=== PATIENT | female | born 1950 | race Caucasian/White ===

== ENCOUNTER 2019-06-17 23:53 | Emergency (ER) | payer MEDICARE, SELFPAY ==
--- NOTE | 2019-06-17 23:57 | ED_ITS ---
Entered by Kailey Holloway, acting as scribe for Jessica Denton MD Jun 17, 2019 23:53 HPI - Fall General: Chief Complaint: Fall Stated Complaint: FALL Time Seen by Provider: 06/17/19 23:56 Source: EMS Mode of arrival: EMS Limitations: no limitations History of Present Illness: HPI Narrative: 89 yo f came to the er by ems for fall and head lac. Onset was today. Ems states that pt was just released from [facility] today for an overdose of insulin. complaint: fall Onset (ago): day(s) (today) Fall from: standing Fall witnessed: no Place fall occurred: home Loss of consciousness: Unsure Prolonged down time: no Symptoms prior to fall: none Context: tripped/slipped Location of injury: head Severity: mild Associated symptoms-after fall: Reports other (back pain); Denies abdominal pain, chest pain or headache(s) Review of Systems Const: Denies: fever or chills Eyes: Denies: change in vision ENMT: Denies: throat pain or mouth pain Card: Denies: chest pain Resp: Denies: shortness of breath GI: Denies: abdominal pain : Denies: difficulty urinating Musc: Denies: back pain or joint pain Skin/Breast: Denies: rash Neuro: Denies: headache Psych: Denies: depression Endo: Denies: excessive urination [place]/Lymph: Denies: easy bruising All/Imm: Denies: hives PFSH ED PFSH: Statuses (acute, chronic, etc) shown below reflect problem list status as previously entered and may not be historically accurate Social History Smoking and tobacco status: never smoked Physical Exam Const: COMMON NORMALS: no apparent distress and healthy appearing HENMT: COMMON NORMALS: external nose normal NOSE: external nose normal and no nasal discharge (nasal dischage) OTHER: abrasion to right forehead, no laceration Eye: COMMON NORMALS: PERRL PUPIL: Yes PERRL Neck/C-Spine: COMMON NORMALS: full ROM and no lymphadenopathy Chest: COMMONS NORMALS: inspection of chest normal Resp: COMMON NORMALS: normal respiratory effort and clear to auscultation bilaterally AUSCULTATION: clear to auscultation bilaterally Cardio: COMMON NORMALS: regular rate and regular rhythm RATE: regular rate RHYTHM: regular rhythm GI: COMMON NORMALS: soft to palpation PALPATION: Yes soft Extremity: COMMON NORMALS: normal to inspection, full ROM and normal capillary refill Psych: COMMON NORMALS: mental status grossly normal and cooperative Skin: COMMON NORMALS: no rashes or lesions noted GENERAL SKIN EXAM: no rashes or lesions noted Course Vital Signs: Vital signs: Vital Signs Temperature 97.7 F 06/18/19 00:05 Pulse Rate 82 06/18/19 03:00 Respiratory Rate 20 H 06/18/19 03:00 Blood Pressure 192/92 06/18/19 03:00 Pulse Oximetry 92 06/18/19 03:00 MDM - Fall MDM Narrative: Medical decision making narrative: Patient presents here with fall and closed head injury. Patient does have an abrasion but no laceration. Patient was in a c-collar and complained of slight back pain as well. Patient's head CT C-spine CT and lumbar CT are negative. Patient is well-appearing here and is able ambulate and is stable for discharge. Lab Data: Labs: Lab Results 06/17/19 06/17/19 Range/Units 00:15 00:15 WBC 8.3 (4.0-10.0) 10^3/ uL RBC 3.55 L (4.1-5.3) 10^6/u L Hgb 10.1 L (11.5-15.3) g/dL Hct 30.7 L (37.0-47.0) % MCV 86.5 (81-99) fL MCH 28.5 (28.0-34.0) pg MCHC 32.9 (30.0-36.0) g/dL RDW 13.2 (12.1-15.1) % Plt Count 222 (130-400) 10^3/c mm MPV 10.9 H (7.4-10.4) fL Neut % (Auto) 78.4 % Lymph % (Auto) 12.0 % [place] % (Auto) 6.7 % Eos % (Auto) 1.9 % Baso % (Auto) 0.2 % Neut # (Auto) 6.5 (1.8-7.7) 10^3/u L Lymph # (Auto) 1.0 (0.8-4.8) 10^3/u L [place] # (Auto) 0.6 (0.2-0.9) 10^3/u L Eos # (Auto) 0.2 (0.0-0.8) 10^3/u L Baso # (Auto) 0.0 (0.0-0.1) 10^3/u L Nucleated RBC % (a uto) 0 % Nucleated RBCs # 0.0 /100WBC Sodium 137 (136-145) mmol/L Potassium 3.9 (3.5-5.1) mmol/L Chloride 97 L (98-107) mmol/L Carbon Dioxide 30 H (22-29) mmol/L Anion Gap 13.9 (5-19) BUN 16 (8-23) mg/dL Creatinine 1.2 H (0.5-0.9) mg/dL Glucose 388 H (74-106) mg/dL Calcium 9.7 (8.8-10.2) mg/Dl Total Bilirubin 0.4 (0.15-1.2) mg/dL AST 17 (0-32) U/L ALT 14 (0-33) U/L Alkaline Phosphata se 146 H (35-105) IU/L Total Protein 6.6 (6.6-8.7) g/dL Albumin 3.9 (3.5-5.2) g/dL Globulin 2.7 (1.3-4.6) g/dL Imaging Data^: CT Head: Radiologist's impression: Ordering Physician: Jessica Denton MD Date of Service: 06/17/19 Procedure(s): CT head wo con* [id number] Accession Number(s): [id number] cc: Jessica Denton MD PROCEDURE INFORMATION: Exam: CT Head Without Contrast Exam date and time: 06/17/2019 1:26 AM Age: 69 years old Clinical indication: Injury or trauma; Fall; Initial encounter; Blunt trauma (contusions or hematomas); Consciousness not specified TECHNIQUE: Imaging protocol: Computed tomography of the head without contrast. Total DLP: 903.96 mGy-cm Radiation optimization: All CT scans at this facility use at least one of these dose optimization techniques: automated exposure control; mA and/or kV adjustment per patient size (includes targeted exams where dose is matched to clinical indication); or iterative reconstruction. COMPARISON: No relevant prior studies available. FINDINGS: Brain: Periventricular white matter low densities relating to moderate chronic small vessel ischemic change. No findings intracranial hemorrhage. Ventricles: Normal. No ventriculomegaly. Bones/joints: Unremarkable. No acute fracture. Sinuses: Mucosal thickening, fluid, and retention cystic change paranasal sinuses. Mastoid air cells: Visualized mastoid air cells are well aerated. Soft tissues: Subgaleal hematoma/soft tissue swelling right parietal region. CT/CT head wo con* [id number] IMPRESSION: No acute intracranial findings. Sinus inflammatory changes. Additional details as above. Other Imaging: Radiologist's impression: PROCEDURE INFORMATION: Exam: CT Cervical Spine Without Contrast Exam date and time: 06/17/2019 1:26 AM Age: 69 years old Clinical indication: Injury or trauma; Fall; Initial encounter; Blunt trauma TECHNIQUE: Imaging protocol: Computed tomography images of the cervical spine without contrast. Total DLP: 761.37 mGy-cm Radiation optimization: All CT scans at this facility use at least one of these dose optimization techniques: automated exposure control; mA and/or kV adjustment per patient size (includes targeted exams where dose is matched to clinical indication); or iterative reconstruction. COMPARISON: No relevant prior studies available. FINDINGS: Vertebrae: Compression or concavity of superior endplate of C7 is favored to be chronic; however, this can be correlated clinically and if there is lower cervical spine discomfort, MRI could be considered. Discs/Spinal canal/Neural foramina: Moderate size disc protrusion C5-C6. Soft tissues: Relatively dense calcific atheromatous changes at carotid bifurcations. Lungs: Lung apices are normal. CT/CT cervical spin wo con* [id number] IMPRESSION: Compression or concavity of superior endplate of C7 is favored to be chronic; however, this can be correlated clinically and if there is lower cervical spine discomfort, MRI could be considered. Moderate size disc protrusion C5-C6. ct lumbar: Radiologist's impression: PROCEDURE INFORMATION: Exam: CT Lumbar Spine Without Contrast Exam date and time: 06/17/2019 1:26 AM Age: 69 years old Clinical indication: Injury or trauma; Fall; Initial encounter TECHNIQUE: Imaging protocol: Computed tomography images of the lumbar spine without contrast. Total DLP: 2076.02 mGy-cm Radiation optimization: All CT scans at this facility use at least one of these dose optimization techniques: automated exposure control; mA and/or kV adjustment per patient size (includes targeted exams where dose is matched to clinical indication); or iterative reconstruction. COMPARISON: No relevant prior studies available. FINDINGS: Vertebrae: Concavity/superior endplate L1 is age indeterminate. Discs/Spinal canal/Neural foramina: Multilevel degenerative disc changes. Sacrum/coccyx: Sacroiliac degenerative changes are noted. Soft tissues: Unremarkable. Other findings: Bilateral low-density thickening or nodularity of adrenal glands is likely benign. CT/CT lumbar spine wo con* [id number] IMPRESSION: Age-indeterminate superior endplate L1; MRI may be helpful in assessing acuity if needed. Additional details as above. Discharge Plan Discharge Patient Disposition: Home, Self-Care Clinical Impression: CHI (closed head injury) Fall Qualifiers: Encounter type: initial encounter Qualified Code(s): W19.XXXA - Unspecified fall, initial encounter Condition: Stable Discharge Orders: Discharge Order (Routine); Ordered 06/18/19 Ordered By: Jessica Denton Discharge Diet: Advance as tolerated Discharge Activity: Resume usual activity Patient Instructions: Minor Head Injury (ED), Fall Prevention (ED) Coding Level of Care Code ED Assistant Professor Of Nursing for Chg Fwd Exam Problem Focused The documentation recorded by the Jewel alcantara Stephanie Lyn, accurately reflects the service I personally performed and the decisions made by Corrie watt Korby, MD Jun 17, 2019 23:53
[2019-06-18 00:01] VITALS: BMI 32.8
[2019-06-18 00:05] VITALS: BP 156/61; PULSE 80; RESP 16; TEMP 36.5; O2SAT 97
[2019-06-18] MEDS: sodium chloride 0.9% 1,000 ML 999 ML IV (00:40)
[2019-06-18 00:41] VITALS: BP 167/84; PULSE 82; RESP 16; O2SAT 98; O2SAT 99
[2019-06-18 00:50] LABS: Alanine Aminotransferase 14 U/L (0-33); Albumin Level 3.9 g/dL (3.5-5.2); Alkaline Phosphatase 146 IU/L (35-105); Anion Gap 13.9 (5-19); Aspartate Amino Transferase 17 U/L (0-32); Blood Urea Nitrogen 16 mg/dL (8-23); Calcium 9.7 mg/Dl (8.8-10.2); Carbon Dioxide 30 mmol/L (22-29); Chloride 97 mmol/L (98-107); Globulin 2.7 g/dL (1.3-4.6); Glucose 388 mg/dL (74-106); Potassium 3.9 mmol/L (3.5-5.1); Sodium 137 mmol/L (136-145); Total Bilirubin 0.4 mg/dL (0.15-1.2); Total Protein 6.6 g/dL (6.6-8.7)
[2019-06-18 01:16] LABS: Basophils % 0.2 %; Eosinophils # 0.2 10^3/uL (0.0-0.8); Eosinophils % 1.9 %; Hematocrit 30.7 % (37.0-47.0); Hemoglobin 10.1 g/dL (11.5-15.3); Mean Corpuscular HGB Conc 32.9 g/dL (30.0-36.0); Mean Corpuscular Hemoglobin 28.5 pg (28.0-34.0); Mean Corpuscular Volume 86.5 fL (81-99); Mean Platelet Volume 10.9 fL (7.4-10.4); Monocytes # 0.6 10^3/uL (0.2-0.9); Monocytes % 6.7 %; Neutrophils # 6.5 10^3/uL (1.8-7.7); Neutrophils % 78.4 %; Nucleated Red Blood Cells % 0 %; Platelet Count 222 10^3/cmm (130-400); Red Blood Count 3.55 10^6/uL (4.1-5.3); Red Cell Distribution Width 13.2 % (12.1-15.1); White Blood Count 8.3 10^3/uL (4.0-10.0)
[2019-06-18 01:43] VITALS: BP 178/78; PULSE 76; RESP 12; O2SAT 98
--- NOTE | 2019-06-18 01:53 | ED_ITS ---
HPI - Fall General: Chief Complaint: Fall Stated Complaint: FALL Time Seen by Provider: 06/17/19 23:56 Source: EMS Mode of arrival: EMS History of Present Illness: Place fall occurred: home Context: tripped/slipped [facility] ED PFSH: Statuses (acute, chronic, etc) shown below reflect problem list status as previously entered and may not be historically accurate Social History Smoking and tobacco status: never smoked Course Vital Signs: Vital signs: Vital Signs Temperature 97.7 F 06/18/19 00:05 Pulse Rate 76 06/18/19 01:43 Respiratory Rate 12 06/18/19 01:43 Blood Pressure 178/78 06/18/19 01:43 Pulse Oximetry 98 06/18/19 01:43 MDM - Fall MDM Narrative: Medical decision making narrative: Dr. Grossman as having me perform the wound closure. I am not involved in any other care management of patient. Please see procedure notes for details. Lab Data: Labs: Lab Results 06/17/19 06/17/19 Range/Units 00:15 00:15 WBC 8.3 (4.0-10.0) 10^3/ uL RBC 3.55 L (4.1-5.3) 10^6/u L Hgb 10.1 L (11.5-15.3) g/dL Hct 30.7 L (37.0-47.0) % MCV 86.5 (81-99) fL MCH 28.5 (28.0-34.0) pg MCHC 32.9 (30.0-36.0) g/dL RDW 13.2 (12.1-15.1) % Plt Count 222 (130-400) 10^3/c mm MPV 10.9 H (7.4-10.4) fL Neut % (Auto) 78.4 % Lymph % (Auto) 12.0 % [place] % (Auto) 6.7 % Eos % (Auto) 1.9 % Baso % (Auto) 0.2 % Neut # (Auto) 6.5 (1.8-7.7) 10^3/u L Lymph # (Auto) 1.0 (0.8-4.8) 10^3/u L [place] # (Auto) 0.6 (0.2-0.9) 10^3/u L Eos # (Auto) 0.2 (0.0-0.8) 10^3/u L Baso # (Auto) 0.0 (0.0-0.1) 10^3/u L Nucleated RBC % (a uto) 0 % Nucleated RBCs # 0.0 /100WBC Sodium 137 (136-145) mmol/L Potassium 3.9 (3.5-5.1) mmol/L Chloride 97 L (98-107) mmol/L Carbon Dioxide 30 H (22-29) mmol/L Anion Gap 13.9 (5-19) BUN 16 (8-23) mg/dL Creatinine 1.2 H (0.5-0.9) mg/dL Glucose 388 H (74-106) mg/dL Calcium 9.7 (8.8-10.2) mg/Dl Total Bilirubin 0.4 (0.15-1.2) mg/dL AST 17 (0-32) U/L ALT 14 (0-33) U/L Alkaline Phosphata se 146 H (35-105) IU/L Total Protein 6.6 (6.6-8.7) g/dL Albumin 3.9 (3.5-5.2) g/dL Globulin 2.7 (1.3-4.6) g/dL Coding Level of Care Code ED Cardiology Fellow for Vianneyg Neris
[2019-06-18] MEDS: lidocaine 1% INJ 20 mL INTRADERMA (02:50)
[2019-06-18 03:00] VITALS: BP 192/92; PULSE 82; RESP 20; O2SAT 92
--- NOTE | 2019-06-18 03:29 | PC.NURSE ---
Pt was ambulated in her room and in the dodge.
[2019-06-18 05:36] VITALS: PULSE 88; RESP 20; O2SAT 98
[2019-06-18 06:17] VITALS: PULSE 80; RESP 16; O2SAT 96
--- NOTE | 2019-06-18 07:28 | PC.NURSE ---
Call forensic engineer activated: Patient found attempting to leave the bed. The patient was assited to a standing position. The began to urinate in the floor. The patient was assisted to a nearby chair. Clothing and diaper changed. Patient assisted to a restroom as requested.
--- NOTE | 2019-06-18 07:45 | PC.NURSE ---
The patient was assisted back to bed. It was reported to me that the patient has vomited 100 mL and that it was cleaned up.
--- NOTE | 2019-06-18 08:50 | PC.NURSE ---
The patient reported to me that her [id number] was coming to pick her home and should have been here at 7am. Her ride did not arrive as reported to me. It was clarified that the patient will be going home be medical transport. It was reported to me that her ride is on the way.
--- NOTE | 2019-06-18 08:57 | PC.NURSE ---
Advised the patient is yelling for help. I entered the room. The patient needs help working her cell phone.
== END 2019-06-18 09:28 | disposition home or self-care (01) ==
PROVIDERS: Emergency Medicine; Emergency Provider Family Medicine
DX: S09.8XXA Other specified injuries of head, initial encounter (principal); W19.XXXA Unspecified fall, initial encounter; Y92.009 Unspecified place in unspecified non-institutional (private) residence as the place of occurrence of the external cause
CPT/HCPCS: 36415; 70450; 72125; 72131; 80053; 85025; 96360; 99282; 99284; J2001; J7030

== ENCOUNTER 2019-07-02 13:27 | Outpatient (RCR) | payer MEDICARE, SELFPAY | END 2019-07-12 23:59 | disposition home or self-care (01) | LOC: WOUND 13:27 | PROVIDERS: PCP Family Medicine; Visit Provider Thoracic Surgery (Cardiothoracic Vascular Surgery) | DX: E11.621 Type 2 diabetes mellitus with foot ulcer (principal); L97.512 Non-pressure chronic ulcer of other part of right foot with fat layer exposed | CPT/HCPCS: 11042; 99203; 99213; L3260 ==

== ENCOUNTER 2019-07-02 15:20 | Outpatient (CLI) | payer MEDICARE, SELFPAY ==
--- NOTE | 2019-07-02 | XRR_ITS ---
PROCEDURE INFORMATION: Exam: XR Right Foot Complete Exam date and time: 07/02/2019 4:01 PM Age: 69 years old Clinical indication: Pain; Foot; Right; Additional info: Pain/redness TECHNIQUE: Imaging protocol: XR Right foot. Views: 3 or more views. COMPARISON: No relevant prior studies available. FINDINGS: Bones/joints: Amputation of the distal phalange of the 2nd toe is seen. Mild osteoarthritis is noted with narrowing of the interphalangeal articulations. Bone spur is seen on the inferior calcaneus. Soft tissues: Unremarkable XR/XR foot RT min 3V* [id number] IMPRESSION: 1. 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 Soft tissue edema 2nd toe 3. Osteoarthritis 4. Bone spur calcaneus
[2019-07-02 16:37] LABS: Basophils % 0.5 %; Eosinophils # 0.1 10^3/uL (0.0-0.8); Eosinophils % 1.8 %; Hematocrit 38.2 % (37.0-47.0); Hemoglobin 12.6 g/dL (11.5-15.3); Lymphocytes # 1.4 10^3/uL (0.8-4.8); Lymphocytes % 22.8 %; Mean Corpuscular Hemoglobin 29.6 pg (28.0-34.0); Mean Corpuscular Volume 89.7 fL (81-99); Mean Platelet Volume 10.5 fL (7.4-10.4); Monocytes # 0.4 10^3/uL (0.2-0.9); Neutrophils # 4.3 10^3/uL (1.8-7.7); Neutrophils % 67.6 %; Nucleated Red Blood Cells % 0 %; Platelet Count 300 10^3/cmm (130-400); Red Blood Count 4.26 10^6/uL (4.1-5.3); Red Cell Distribution Width 13.7 % (12.1-15.1); White Blood Count 6.3 10^3/uL (4.0-10.0)
[2019-07-02 16:49] LABS: Albumin Level 4.6 g/dL (3.5-5.2); Anion Gap 15.1 (5-19); Blood Urea Nitrogen 22 mg/dL (8-23); C Reactive Protein 0.8 mg/L (0.0-4.9); Calcium 10.1 mg/Dl (8.8-10.2); Carbon Dioxide 28 mmol/L (22-29); Chloride 96 mmol/L (98-107); Glucose 397 mg/dL (74-106); Potassium 4.1 mmol/L (3.5-5.1); Sodium 135 mmol/L (136-145)
[2019-07-02 16:58] LABS: Estmated Average Glucose 180; Hemoglobin A1C 7.9 % (4.0-6.0)
[2019-07-02 17:14] LABS: Erythrocyte Sedimentation Rate 19 mm/hr (0-15)
[2019-07-02 17:46] LABS: Prealbumin 23.6 mg/dL (20-40)
== END 2019-07-02 15:21 | disposition home or self-care (01) ==
LOC: RAD 15:32
PROVIDERS: PCP Family Medicine; Visit Provider Thoracic Surgery (Cardiothoracic Vascular Surgery)
DX: L97.919 Non-pressure chronic ulcer of unspecified part of right lower leg with unspecified severity (principal); M79.671 Pain in right foot; M19.071 Primary osteoarthritis, right ankle and foot; M77.31 Calcaneal spur, right foot; M79.9 Soft tissue disorder, unspecified; Z89.421 Acquired absence of other right toe(s); E11.42 Type 2 diabetes mellitus with diabetic polyneuropathy
CPT/HCPCS: 36415; 73630; 80048; 82040; 83036; 84134; 85025; 85651; 86140

== ENCOUNTER 2019-07-03 10:54 | Inpatient (IN) | payer MEDICARE, SELFPAY ==
[2019-07-03 10:55] VITALS: BP 177/62; PULSE 76; RESP 18; TEMP 36.8; O2SAT 96; BMI 28.3
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
--- NOTE | 2019-07-03 11:08 | ECG_ITS ---
Measurements Intervals [place] Rate: 75 P: AL: 0 QRS: 16 QRSD: 82 T: 55 QT: 393 QTc: 441 SUPRAVENTRICULAR RHYTHM LOW QRS VOLTAGE IN PRECORDIAL LEADS [QRS DEFLECTION < 1.0 mV IN CHEST LEADS] NONSPECIFIC T-WAVE ABNORMALITY ABNORMAL RHYTHM ECG No previous ECG available for comparison Electronically Signed On 07-03-2019 20:35:23 DRIER by Jo Ann Soares M.D. [id number]
[2019-07-03 11:40] VITALS: O2SAT 97
[2019-07-03 11:48] LABS: Basophils % 0.3 %; Eosinophils # 0.1 10^3/uL (0.0-0.8); Eosinophils % 1.7 %; Hematocrit 37.6 % (37.0-47.0); Hemoglobin 12.4 g/dL (11.5-15.3); Lymphocytes # 1.4 10^3/uL (0.8-4.8); Lymphocytes % 17.4 %; Mean Corpuscular Hemoglobin 28.6 pg (28.0-34.0); Mean Corpuscular Volume 86.6 fL (81-99); Mean Platelet Volume 10.5 fL (7.4-10.4); Monocytes # 0.5 10^3/uL (0.2-0.9); Monocytes % 6.2 %; Neutrophils # 5.8 10^3/uL (1.8-7.7); Neutrophils % 74.1 %; Nucleated Red Blood Cells % 0 %; Platelet Count 269 10^3/cmm (130-400); Red Blood Count 4.34 10^6/uL (4.1-5.3); Red Cell Distribution Width 13.3 % (12.1-15.1); White Blood Count 7.8 10^3/uL (4.0-10.0)
--- NOTE | 2019-07-03 11:52 | XR_ITS ---
WS: [id number] PORTABLE CHEST HISTORY: cough/congestion COMPARISON: 09/22/2006 Lungs are clear and well expanded. No pleural effusion or pneumothorax. Cardiac size: Normal. Mediastinum/Aorta: Mildly ectatic thoracic aorta. Osteopenia with degenerative changes at the AC joints and glenohumeral joints. Prior cholecystectomy. XR/XR chest 1V portable [id number] IMPRESSION: 1. No acute cardiopulmonary disease. 2. Mild ectasia thoracic aorta.
[2019-07-03] MEDS: sodium chloride 0.9% 1,000 ML 999 ML IV (12:10)
[2019-07-03 12:11] VITALS: BP 154/68; PULSE 80; O2SAT 98
--- NOTE | 2019-07-03 12:12 | PC.NURSE ---
Portable chest xray at bedside
[2019-07-03 13:01] LABS: Sodium 136 mmol/L (136-145)
[2019-07-03 13:02] LABS: Alanine Aminotransferase 9 U/L (0-33); Albumin Level 4.6 g/dL (3.5-5.2); Alkaline Phosphatase 118 IU/L (35-105); Anion Gap 14.1 (5-19); Aspartate Amino Transferase 14 U/L (0-32); Blood Urea Nitrogen 19 mg/dL (8-23); Calcium 10.6 mg/Dl (8.8-10.2); Carbon Dioxide 28 mmol/L (22-29); Chloride 98 mmol/L (98-107); Creatine Phosphokinase 76 U/L (26-192); Globulin 3.2 g/dL (1.3-4.6); Glucose 180 mg/dL (74-106); Potassium 4.1 mmol/L (3.5-5.1); Total Bilirubin 0.6 mg/dL (0.15-1.2); Total Protein 7.8 g/dL (6.6-8.7)
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
[2019-07-03 14:55] LABS: Add Urine Microscopic? YES; Bilirubin Urine Neg (NEGATIVE); Blood Urine Neg (Negative); Glucose Urine UA 2+ (Normal); Ketones Urine Negative (Negative); Leukocyte Esterase Urine Negative (Negative); Nitrate Urine Negative (Negative); Protein Urine 1+ (Negative); Urine Appearance Clear (CLEAR); Urine Color Yellow (Yellow); Urobilinogen Urine Norm (Negative)
[2019-07-03 15:02] LABS: Add Urine Culture? No; Bacteria Urine 2+; RBC Urine 0-4 /hpf (0-2); Squamous Epithelial Cell Urine 25-40 (0-5); WBC Urine 15-25 /hpf (0-5)
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
[2019-07-03 16:12] LABS: Acetaminophen < 5.0 ug/mL (10-30); Alcohol Level < 10 mg/dL (0-10); Salicylate < 0.3 mg/dL (3-10)
[2019-07-03 16:31] LABS: Troponin(5th) Baseline 27 ng/mL (0-10)
[2019-07-03] MEDS: ziprasidone 20 mg/mL SDV (17:11)
[2019-07-03] MEDS: LORazepam 2 mg/mL INJ 1 mL 1 MG IM (17:11)
[2019-07-03] MEDS: water for injection-sterile 10 ML (17:11)
--- NOTE | 2019-07-03 17:12 | ECG_ITS ---
Measurements Intervals [place] Rate: 81 P: 69 [place]: 145 QRS: 6 QRSD: 88 T: 35 QT: 395 QTc: 459 SINUS RHYTHM WITH OCCASIONAL SUPRAVENTRICULAR PREMATURE COMPLEXES LOW QRS VOLTAGE IN PRECORDIAL LEADS [QRS DEFLECTION < 1.0 mV IN CHEST LEADS] Compared to ECG 07/03/2019 11:31:32 Supraventricular rhythm no longer present T-wave abnormality no longer present Electronically Signed On 07-04-2019 15:27:42 FIELD HEALTH OFFICER by Todd Gardner M.D. [id number]
[2019-07-03 18:17] LABS: Amphetamines Screen Urine Negative (Negative); Barbiturates Screen Urine Negative (Negative); Benzodiazepines Screen Urine Negative (Negative); Cocaine Screen Urine Negative (Negative); Opiate Screen Urine Negative (Negative); PCP Screen Urine Negative (Negative); THC Screen Urine Negative (Negative)
--- NOTE | 2019-07-03 19:10 | PC.NURSE ---
report rec'd from 7a shift. care assumed at this time. rec'd pt resting with eyes closed resp e/u NAD noted
--- NOTE | 2019-07-03 20:00 | PC.NURSE ---
sleeping in chair. resp e/u NAD noted
--- NOTE | 2019-07-03 21:47 | PC.NURSE ---
remains in chair asleep. no changes in pt status noted
[2019-07-03 22:39] VITALS: BP 186/71; PULSE 83; RESP 16; TEMP 36.7; O2SAT 98
--- NOTE | 2019-07-03 22:42 | PC.NURSE ---
ekg completed. labs drawn v/s obtained. pt cooperative. po intake offered. sips taken of diet mt [facility]. denies further needs
[2019-07-03 22:48] LABS: Troponin T (5th) Once 53 ng/mL (0-10)
[2019-07-04] VITALS (82 sets, daily range): BP systolic 95–162; BP diastolic 58–94; PULSE 65–91; RESP 11–29; TEMP 37–37.2; O2SAT 93–100
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
--- NOTE | 2019-07-04 01:00 | PC.NURSE ---
x2 person assisted up to BR voided w/o diff. ambulated in hallway with 2 person assist. po hydration needs addressed. rt great toe noted to be bleeding upon ambulation. upon returning to bed sock removed. a saturated drsg was noted to rt great toe. drsg removed. small hole noted in bottom of toe. dr armstrong notified.
--- NOTE | 2019-07-04 01:28 | XR_ITS ---
WS: [id number] RIGHT FOOT: 2 VIEW(S) TECHNIQUE: PA and lateral. HISTORY: right Great toe tunneled ulcer COMPARISON: 07/02/2019 Removal of the distal second toe. There is mild soft tissue swelling around the distal first and seco nd toe. By history there is an ulcer present. The ulcer is not readily evident radiographically. No o steomyelitis. Extensive degenerative changes in the midfoot and at the interphalangeal joints. XR/XR foot RT 2V [id number] IMPRESSION: 1. No acute osteomyelitis. No definite ulcer is identified radiographically. 2. Partial amputation distal second toe.
--- NOTE | 2019-07-04 01:30 | PC.NURSE ---
rt great toe redressed with 2x2 and coban
[2019-07-04 06:46] LABS: Glucose Point of Care 117 mg/dL (70-110)
--- NOTE | 2019-07-04 09:04 | USCV_ITS ---
Татьяна Cheema Age: 69 Gender: F : 1950 Exam Date: 07/04/2019 10:20 Ordering Phys: Janes Farr MD Technologist: Tanika Anderson Exam Location: [facility] [place] Indication: Chest pain BP: 125 / 61 HR: 83 Rhythm: Sinus Technical Quality: Suboptimal MEASUREMENTS (Male / Female) Normal Values 2D ECHO LV Diastolic Diameter PLAX 3.9 cm 4.2 - 5.9 / 3.9 - 5.3 cm LV Systolic Diameter PLAX 2.7 cm LV Chamber Size 3.6 cm IVS Diastolic Thickness 1.4 cm 0.6 - 1.0 / 0.6 - 0.9 cm IVS Systolic Thickness 2.0 cm LVPW Diastolic Thickness 1.3 cm 0.6 - 1.0 / 0.6 - 0.9 cm LVPW Systolic Thickness 1.6 cm RV Chamber Size 1.8 cm LVOT Diameter 2.0 cm LV Ejection Fraction 2D Teich 61.0 % LA Diameter 3.8 cm LA Width 3.4 cm LA Height 5.5 cm RA Width 2.4 cm RA Height 4.2 cm Aorta at Sinotubular Diameter 2.8 cm M-MODE LV Diastolic Diameter MM 4.4 cm 4.2 - 5.9 / 3.9 - 5.3 cm LV Systolic Diameter MM 2.9 cm LV Ejection Fraction MM Teich 63.7 % IVS Diastolic Thickness MM 1.0 cm 0.6 - 1.0 / 0.6 - 0.9 cm IVS Systolic Thickness MM 1.3 cm LVPW Diastolic Thickness MM 1.5 cm 0.6 - 1.0 / 0.6 - 0.9 cm LVPW Systolic Thickness MM 1.5 cm RV Diastolic Diameter MM 1.7 cm Aortic Annulus Diameter 3.7 cm LA Ao Ratio MM 1.0 MV E Point Septal Separation 0.5 cm DOPPLER AV Peak Velocity 83.0 cm/s LVOT Peak Velocity 75.0 cm/s AV Area Cont Eq vti 2.9 cm squared AV Area Cont Eq pk 2.8 cm squared MV Area PHT 3.3 cm squared Mitral E to A Ratio 0.9 MV E' Velocity 8.0 cm/s Mitral E to MV E' Ratio 9.3 Mitral E to LV E' Lateral Ratio 9.3 Mitral E to LV E' Septal Ratio 9.3 TR Peak Velocity 225.0 cm/s TR Peak Gradient 20.2 mmHg TR Mean Velocity 188.4 cm/s TR Mean Gradient 14.4 mmHg TR Velocity Time Integral 53.4 cm TV Peak E Velocity 43.0 cm/s Right Atrial Pressure 3.0 mmHg Pulmonary Artery Systolic Pressu 23.3 mmHg PV Peak Velocity 75.0 cm/s RV Acceleration Time 0.1 s RV Ejection Time 0.2 s RV AcT/ET 0.3 FINDINGS Left Ventricle Normal left ventricular size and systolic function, EF 65%. Mild concentric left atrial hypertrophy.Grade I/IV diastolic dysfunction (abnormal relaxation filling pattern), normal to mildly elevated filling pressures. Right Ventricle Normal right ventricular size and systolic function. Right Atrium The right atrium is normal in size. Left Atrium Mildly increased left atrial size. Mitral Valve Trace mitral valve regurgitation. Aortic Valve No gross abnormalities noted Tricuspid Valve Mild tricuspid valve regurgitation. Pulmonic Valve No gross abnormalities noted Pericardium Normal pericardium without effusion. Aorta Normal ascending aorta dimension. CONCLUSIONS Normal left ventricular size and systolic function, EF 65%. Mild concentric left atrial hypertrophy. Grade I/IV diastolic dysfunction (abnormal relaxation filling pattern), normal to mildly elevated filling pressures. Mildly increased left atrial size. Trace mitral valve regurgitation. Mild tricuspid valve regurgitation. Estimated pulmonary artery peak systolic pressure 23 mmHg There is no pericardial effusion. There are no intracardiac masses. Dr Jo Ann Soares MD [facility] (Electronically Signed) Final Date: 04 July 2019 19:44 S
[2019-07-04] MEDS: atorvastatin 40 mg Tablet PO (09:14)
[2019-07-04] MEDS: apixaban 5 mg Tablet PO ×2 (09:14→18:07)
[2019-07-04] MEDS: pantoprazole DR 40 mg Tablet PO (09:14)
[2019-07-04] MEDS: donepezil 5 MG Tablet PO (09:14)
[2019-07-04] MEDS: dilTIAZem ER (24HR) 180 mg Capsule PO (09:14)
[2019-07-04] MEDS: lamoTRIgine 25 mg Tablet PO (09:14)
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
--- NOTE | 2019-07-04 11:45 | PC.NURSE ---
patient transferred to icu, bedside report given to Liss JOHN
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
[2019-07-04 12:30] LABS: Glucose Point of Care 155 mg/dL (70-110)
[2019-07-04 18:16] LABS: Glucose Point of Care 163 mg/dL (70-110)
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
[2019-07-04] MEDS: trazodone 50 mg Tablet PO (19:57)
[2019-07-04] MEDS: OLANZapine 5 mg TABLET PO (19:57)
--- NOTE | 2019-07-04 21:12 | PC.PHAR ---
Pharmacy review of medications that may increase fall risk: Татьяна Cheema is on the following medications at this time that have the potential for increased fall risk: 1. Diltiazem is a calcium channel shruti cardiovascular agent with risk factors of orthostatic hypotension, dizziness, syncope, bradycardia, and impaired cerebral perfusion. 2. Lamotrigine is an anticonvulsant with risk factors of sedation, psychomotor impairment, and confusion. 3. Trazodone is a sedating antidepressant with risk fators of psychomotor impairment, sedation, orthostatic hypotension, confusion, and diziness. 4. Insulin is an antidiabetic agent which has the risk factor of hypoglycemia. Due to both the individual and combined risk factors for falls careful attention should be displayed toward proper dosing and medication compliance as well as reporting all difficulties encountered especially being careful when arising from the lying or seated position. Thank you for the consult, SHEA Lyons, 07/04/2019, 2121
[2019-07-05] VITALS (38 sets, daily range): BP systolic 104–158; BP diastolic 61–86; PULSE 70–97; RESP 2–28; TEMP 37.2; O2SAT 75–100
[2019-07-05 04:44] LABS: Basophils % 0.5 %; Eosinophils # 0.1 10^3/uL (0.0-0.8); Eosinophils % 2.3 %; Hemoglobin 10.9 g/dL (11.5-15.3); Lymphocytes # 2.3 10^3/uL (0.8-4.8); Lymphocytes % 36.9 %; Mean Corpuscular Hemoglobin 28.8 pg (28.0-34.0); Mean Corpuscular Volume 87.1 fL (81-99); Mean Platelet Volume 10.4 fL (7.4-10.4); Monocytes # 0.5 10^3/uL (0.2-0.9); Monocytes % 8.3 %; Neutrophils # 3.2 10^3/uL (1.8-7.7); Neutrophils % 51.7 %; Nucleated Red Blood Cells % 0 %; Platelet Count 232 10^3/cmm (130-400); Red Blood Count 3.79 10^6/uL (4.1-5.3); Red Cell Distribution Width 13.2 % (12.1-15.1); White Blood Count 6.2 10^3/uL (4.0-10.0)
[2019-07-05 05:05] LABS: Alanine Aminotransferase 7 U/L (0-33); Albumin Level 3.9 g/dL (3.5-5.2); Alkaline Phosphatase 93 IU/L (35-105); Anion Gap 13.7 (5-19); Aspartate Amino Transferase 11 U/L (0-32); Blood Urea Nitrogen 15 mg/dL (8-23); Carbon Dioxide 28 mmol/L (22-29); Chloride 101 mmol/L (98-107); Globulin 2.1 g/dL (1.3-4.6); Glucose 146 mg/dL (74-106); Magnesium 1.9 mg/dL (1.7-2.3); Phosphorus 2.9 mg/dL (2.5-4.5); Potassium 3.7 mmol/L (3.5-5.1); Sodium 139 mmol/L (136-145); Total Bilirubin 0.5 mg/dL (0.15-1.2)
[2019-07-05 07:10] LABS: Glucose Point of Care 130 mg/dL (70-110)
[2019-07-05] MEDS: dilTIAZem ER (24HR) 180 mg Capsule PO (10:03)
[2019-07-05] MEDS: atorvastatin 40 mg Tablet PO (10:04)
[2019-07-05] MEDS: pantoprazole DR 40 mg Tablet PO (10:04)
[2019-07-05] MEDS: donepezil 5 MG Tablet PO (10:04)
[2019-07-05] MEDS: apixaban 5 mg Tablet PO (10:04)
[2019-07-05] MEDS: lamoTRIgine 25 mg Tablet PO (10:06)
[2019-07-05 11:28] LABS: Glucose Point of Care 199 mg/dL (70-110)
--- NOTE | 2019-07-05 13:19 | PC.CHAP ---
Pastoral Care Encounter/Spiritual Assessment Type of Contact [] Declined manager banking visit [] Patient/Family/Request visit [] Outpatient visit [] Follow-up visit [] Physician referral [] Code/Alert [x] Routine visit [] Staff referral [] Actively dying [] Patient sleeping [] Family support [] [] Out of room [] Palliative care [] [] Receiving care in room [] Pre-surgical visit [] Trauma [] Long length of stay [x] ICU visit [] Other: Relational/Emotional Strength [x] Patient feels connected with others/family/visitors/staff [] Distress [] Loneliness/isolation [] Abandonment Spirituality of Patient [x] Person of Claudia [x] Attends Buddhism of their Claudia [x] Believes in Prayer [] Reads Bible or Yazdanism materials [] There are Spiritual issues to be addressed Deflash And Wash Operator Interventions [x] Prayer [x] Active listening [x] Non-anxious presence [x] Spiritual/emotional support [] Crisis/trauma care [x] Spiritual counseling [] Bereavement support [] Provided bereavement packet [] Provided Bible/devotional materials [] Provided toy/stuffed animal, coloring book to patient or family member [] Completed spiritual assessment [] Provided Communion [] Anointing/[place] [] Salvation [] Other: Impact on Illness or Injury [] Angry [] Fearful [] Anxious [] Often cries [] Exhaustion [] Unable to work [] Unable to attend anabaptist [] Unable to walk/stand [] Unable to read [x] Unable to drive [] Unable to eat/drink [] Unable to sleep [x] Unable to be with family [] Other: Summary Patient lives in [facility] and is visiting her brother here. Time spent with patient 5-minutes
--- NOTE | 2019-07-05 13:34 | P.PN_ITS ---
Subjective Subjective: Interval history: This morning patient has no significant complaints, no chest pain, no shortness of breath, no lightheadedness, no dizziness, no nausea, no vomiting, patient is agreeable to go to a geriatric psych unit Vitals/I&O/Wt Last Vital Signs Temp 98.9 F 07/05/19 00:00 Pulse 88 07/05/19 12:00 Resp 23 H 07/05/19 12:00 BP 150/77 07/05/19 12:00 Pulse Ox 100 07/05/19 12:00 07/04/19 07/05/19 07/05/19 22:59 06:59 14:59 Intake Total 200 / 200 200 / 200 Balance 200 / 200 200 / 200 Physical Exam Const: COMMON NORMALS: no apparent distress and oriented x3 HENMT: COMMON NORMALS: normocephalic HEAD & SCALP: normocephalic Neck/C-Spine: COMMON NORMALS: no JVD Resp: COMMON NORMALS: normal respiratory effort, no retractions, no use of accessory muscles and clear to auscultation bilaterally AUSCULTATION: clear to auscultation bilaterally Cardio: COMMON NORMALS: no JVD, regular rate, regular rhythm, S1 normal heart sound and S2 normal heart sound RATE: regular rate RHYTHM: regular rhythm HEART SOUNDS: S1 normal and S2 normal GI: COMMON NORMALS: normal to inspection, nondistended, normoactive bowel sounds, soft to palpation, non-tender, no hepatosplenomegaly, no masses and no bruits PALPATION: Yes soft and Yes no hepatosplenomegaly Extremity: COMMON NORMALS: normal capillary refill, no clubbing, cyanosis or edema, no calf tenderness and no pedal edema Neuro: COMMON NORMALS: oriented x3 Psych: COMMON NORMALS: mental status grossly normal, thought process normal, denies hallucinations, denies homicidal ideation and denies suicidal ideation MOOD & AFFECT: Yes depressed mood and Yes irritable THOUGHT PROCESS: normal thought process Data : 07/05/19 04:32 07/05/19 04:32 A&P Assessment and plan (1) Psychosis: -Recent history of suicide attempt -No current suicidal ideation, homicidal ideation, is not depressed -Patient is in the ICU, on a 96-hour hold -Psychiatry is agreeable to transfer to geriatric psych unit -Continue home medications Status: Acute Code(s): F29 - Unspecified psychosis not due to a substance or known physiological condition (2) Chest pain: -No current chest pain -No significant telemetry events -Echocardiogram no wall motion abnormalities, ejection fraction 65%, mild concentric left atrial hypertrophy Status: Acute Code(s): R07.9 - Chest pain, unspecified (3) Right foot ulcer: -Status post debridement by podiatry -Follow-up podiatry's recommendations Status: Acute Code(s): L97.519 - Non-pressure chronic ulcer of other part of right foot with unspecified severity (4) Dementia: Status: Acute Qualifiers: Dementia behavioral disturbance: with behavioral disturbance Dementia type: unspecified type Qualified Code(s): F03.91 - Unspecified dementia with behavioral disturbance Code(s): F03.90 - Unspecified dementia without behavioral disturbance Additional A&P Information Full code DVT prophylaxis not needed she is on Eliquis GI prophylaxis: Protonix Attestations Medical Necessity Statement*: Patient requires hospitalization, requiring tra nsfer to the geriatric psych unit Coding Level of Care Code 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
[2019-07-05] MEDS: haloperidol inj 5 mg/mL INJ 1 mL 2 MG IM (15:12)
--- NOTE | 2019-07-05 16:35 | PC.NURSE ---
pt removed iv line dr. bryant on unit and stated its ok to leave the iv out at this time and allow her to not be hooked up to ekg/spo2/bp monitor at this time.
--- NOTE | 2019-07-05 17:31 | P.TS_ITS ---
Transfer Summary Providers Date of Admission: 07/05/19 08:37 Date of Discharge: 07/05/19 Attending Provider at Admission: Iona Cobian MD Attending Provider at Transfer: Janes Farr MD Primary Care Provider: Mary Grace Hollingsworth MD Anticipated Date of Transfer: Anticipated date of transfer: 07/05/19 Receiving Facility & Provider: Receiving Provider: [] Receiving facility: [] Diagnoses at Discharge Discharge Diagnosis (1) Psychosis: Status: Acute (2) Chest pain: Status: Acute (3) Right foot ulcer: Status: Acute (4) Dementia: Status: Acute Qualifiers: Dementia behavioral disturbance: with behavioral disturbance Dementia type: unspecified type Qualified Code(s): F03.91 - Unspecified dementia with behavioral disturbance Reason for Visit Reason for Visit: Reason For Visit: FALL Hospital Course Discharge Summary: Patient's baseline troponin was 27,This is a 69-year-old female who is a resident of an assisted care living facility who presents to the emergency room as she was trying to escape the premises of assisted living facility. Patient was in the ER for the last [address] to [address] her to a geriatric psychiatric unit, however due to elevated troponins it was difficult for facilities to accept her. Chest pain: Patient during my examination, denies any chest pain, denies any chest wall pain, denies any shortness of breath, denies any lightheadedness, denies any dizziness, denies any nausea, denies any vomiting, denies any shoulder pain. Done in the emergency room she did report some chest wall pain, which was thought to be musculoskeletal. But patient denied any significant pain complaints during my examination and history taking. Patient denies any history of CAD. Denies any history of CABG. Denies any history of stress test. Denies any significant family history of CAD. Patient's baseline troponin was 27, second troponin was 53. Patient had no significant ST-T wave changes on EKG. No significant telemetry abnormalities. Patient's echocardiogram showed ejection fraction 65%, mild concentric left atrial hypertrophy, grade 1 out of 4 diastolic dysfunction. Patient had no chest pain throughout her admission. If patient does have chest pain in the future, can consider a nonemergent outpatient stress test. She should continue aspirin, statin as outpatient. She has a history of atrial fibrillation, is on Eliquis and Cardizem. During her admission, patient had episodes of agitation and anxiety, patient has a history of a suicide attempt recently, does report feeling down depressed and sad.currently denies active suicidal ideation, denies active homicidal ideation. Is on Zyprexa, trazodone, Aricept , Lamictal, and venlafaxine. Patient was transferred to geriatric psych unit. In addition patient was found to have a chronic ulcer of the great toe of the right foot, status post debridement by Dr. Godoy during hospital stay, x-ray was negative for osteomyelitis, will need a [place] shoe to be worn at all times while ambulating, and patient can follow-up with podiatry as outpatient. Physical Exam Const: COMMON NORMALS: no apparent distress and oriented x3 HENMT: COMMON NORMALS: normocephalic HEAD & SCALP: normocephalic Neck/C-Spine: COMMON NORMALS: no JVD Resp: COMMON NORMALS: normal respiratory effort, no retractions, no use of accessory muscles and clear to auscultation bilaterally AUSCULTATION: clear to auscultation bilaterally Cardio: COMMON NORMALS: no JVD, regular rate, regular rhythm, S1 normal heart sound and S2 normal heart sound RATE: regular rate RHYTHM: regular rhythm HEART SOUNDS: S1 normal and S2 normal GI: COMMON NORMALS: normal to inspection, nondistended, normoactive bowel sounds, soft to palpation, non-tender, no hepatosplenomegaly, no masses and no bruits PALPATION: Yes soft and Yes no hepatosplenomegaly Extremity: COMMON NORMALS: normal capillary refill, no clubbing, cyanosis or edema, no calf tenderness and no pedal edema Neuro: COMMON NORMALS: oriented x3 Psych: COMMON NORMALS: mental status grossly normal, thought process normal, denies hallucinations, denies homicidal ideation and denies suicidal ideation MOOD & AFFECT: Yes depressed mood and Yes irritable THOUGHT PROCESS: normal thought process TS Data Data Completed and Pending: Completed Studies During Hospitalization Category Date Time Status XR chest 1V [place]y ble [id number] Urgent Exams 07/03/19 11:52 Completed XR foot RT 2V 736 20 Stat Exams 07/04/19 01:28 Completed CV echo complete* [id number] Routine Ultrasound 07/04/19 09:04 Completed Pending at discharge Category Date Time Status CBC [Complete Blo od Count w/Auto] A M LABS Lab 07/06/19 04:00 Ordered CBC [Complete Blo od Count w/Auto] A M LABS Lab 07/07/19 04:00 Ordered Comprehensive Met abolic Panel AM LA BS Lab 07/06/19 04:00 Ordered Comprehensive Met abolic Panel AM LA BS Lab 07/07/19 04:00 Ordered Magnesium AM LABS Lab 07/06/19 04:00 Ordered Magnesium AM LABS Lab 07/07/19 04:00 Ordered Phosphorus AM LAB S Lab 07/06/19 04:00 Ordered Phosphorus AM LAB S Lab 07/07/19 04:00 Ordered Labs from last 24 hours 07/05/19 07/05/19 07/05/19 11:25 06:54 04:32 WBC RBC Hgb Hct MCV MCH MCHC RDW Plt Count MPV Neut % (Auto) Lymph % (Auto) [place] % (Auto) Eos % (Auto) Baso % (Auto) Neut # (Auto) Lymph # (Auto) [place] # (Auto) Eos # (Auto) Baso # (Auto) Nucleated RBC % (a uto) Nucleated RBCs # Sodium 139 Potassium 3.7 Chloride 101 Carbon Dioxide 28 Anion Gap 13.7 BUN 15 Creatinine 1.5 H Glucose 146 H POC Glucose 199 130 Calcium 10.0 Phosphorus 2.9 Magnesium 1.9 Total Bilirubin 0.5 AST 11 ALT 7 Alkaline Phosphata se 93 Total Protein 6.0 L Albumin 3.9 Globulin 2.1 07/05/19 07/04/19 04:32 18:02 WBC 6.2 RBC 3.79 L Hgb 10.9 L Hct 33.0 L MCV 87.1 MCH 28.8 MCHC 33.0 RDW 13.2 Plt Count 232 MPV 10.4 Neut % (Auto) 51.7 Lymph % (Auto) 36.9 [place] % (Auto) 8.3 Eos % (Auto) 2.3 Baso % (Auto) 0.5 Neut # (Auto) 3.2 Lymph # (Auto) 2.3 [place] # (Auto) 0.5 Eos # (Auto) 0.1 Baso # (Auto) 0.0 Nucleated RBC % (a uto) 0 Nucleated RBCs # 0.0 Sodium Potassium Chloride Carbon Dioxide Anion Gap BUN Creatinine Glucose POC Glucose 163 Calcium Phosphorus Magnesium Total Bilirubin AST ALT Alkaline Phosphata se Total Protein Albumin Globulin Vitals: Last Vital Signs Temp 98.9 F 07/05/19 00:00 Pulse 88 01/24/20 12:00 Resp 23 H 07/05/19 12:00 BP 150/77 07/05/19 12:00 Pulse Ox 100 07/05/19 12:00 TS Medications Medications Home Medications donepezil 5 mg PO DAILY 06/18/19 [History Confirmed 07/04/19] insulin detemir U-100 [Levemir U-100 Insulin] 8 unit SUBCUT DIRECTED 06/18/19 [History Confirmed 06/20/19] lamotrigine 25 mg PO DAILY 06/18/19 [History Confirmed 06/20/19] apixaban 5 mg tablet 5 mg PO BID 06/20/19 [History Confirmed 07/04/19] aripiprazole 5 mg tablet 5 mg PO ONCE 06/20/19 [History Confirmed 07/04/19] atorvastatin 20 mg tablet 20 mg PO ONCE 06/20/19 [History Confirmed 07/04/19] diltiazem HCl 180 mg capsule,extended release 24 hr 180 mg PO QAM 06/20/19 [History Confirmed 07/04/19] lamotrigine 25 mg tablet 50 mg PO DAILY #60 tab 06/20/19 [Rx Confirmed 06/20/19] mirtazapine 7.5 mg tablet 7.5 mg PO ONCE 06/20/19 [History Confirmed 07/04/19] omeprazole 40 mg capsule,delayed release 40 mg PO ONCE cap 06/20/19 [History Confirmed 07/04/19] trazodone 50 mg tablet 50 mg PO .hs tab 06/20/19 [History Confirmed 06/20/19] venlafaxine 37.5 mg capsule,extended release 24 hr 37.5 mg PO ONCE 06/20/19 [History Confirmed 07/04/19] pen needle, diabetic 32 gauge x 5/32 #100 each 06/28/19 [Rx] Active Medications Acetaminophen (Tylenol) 650 mg PO PRN PRN PRN Reason: prn Apixaban (Eliquis) 5 mg PO BID [facility] Last Admin: 07/05/19 17:11 Dose: Not Given Documented by: Atorvastatin Calcium (Lipitor) 40 mg PO DAILY [facility] Last Admin: 07/05/19 10:04 Dose: 40 mg Documented by: Dextrose (D50w) 25 ml IVP ONCE PRN; Protocol PRN Reason: hypoglycemia protocol Dextrose (D50w) 50 ml IVP PRN PRN; Protocol PRN Reason: hypoglycemia protocol Diltiazem HCl (Cardizem Cd (24hr)) 180 mg PO DAILY [facility] Last Admin: 07/05/19 10:03 Dose: 180 mg Documented by: Donepezil HCl (Aricept) 5 mg PO DAILY [facility] Last Admin: 07/05/19 10:04 Dose: 5 mg Documented by: Glucagon (Glucagen) 1 mg IM ONCE PRN; Protocol PRN Reason: Adult Acute Hypoglycemia Prot. Haloperidol Lactate (Haldol Inj) 4 mg IM Q2H PRN PRN Reason: AGITATION Dextrose (D5w) 500 mls @ 100 mls/hr IV ONCE PRN; Protocol PRN Reason: Adult Acute Hypoglycemia Prot Insulin Aspart (Novolog) 0 unit SUBCUT TIDWM [facility]; Protocol Last Admin: 07/05/19 17:11 Dose: Not Given Documented by: Lamotrigine (Lamictal) 25 mg PO DAILY [facility] Last Admin: 07/05/19 10:06 Dose: 25 mg Documented by: Olanzapine (Zyprexa) 5 mg PO BEDTIME [facility] Last Admin: 07/04/19 19:57 Dose: 5 mg Documented by: Pantoprazole Sodium (Protonix) 40 mg PO DAILY [facility] Last Admin: 07/05/19 10:04 Dose: 40 mg Documented by: Trazodone HCl (Desyrel) 50 mg PO BEDTIME [facility] Discharge Plan Discharge Patient Disposition: Xfer Psychiatric Hosp Condition: Stable Prescriptions: New aspirin 81 mg tablet,delayed release (DR/EC) 81 mg PO DAILY 30 Days Qty: 30 RF: 0 olanzapine 5 mg Tablet 5 mg PO BEDTIME 30 Days Qty: 30 RF: 0 Continued trazodone 50 mg tablet 50 mg PO .hs RF: 0 diltiazem HCl [Cardizem CD] 180 mg capsule,extended release 24hr 180 mg PO QAM RF: 0 venlafaxine 37.5 mg capsule,extended release 24hr 37.5 mg PO ONCE RF: 0 Eliquis 5 mg tablet 5 mg PO BID RF: 0 atorvastatin 20 mg tablet 20 mg PO ONCE RF: 0 omeprazole 40 mg capsule,delayed release(DR/EC) 40 mg PO ONCE RF: 0 mirtazapine 7.5 mg tablet 7.5 mg PO ONCE RF: 0 lamotrigine [Lamictal] 25 mg tablet 50 mg PO DAILY Qty: 60 RF: 1 donepezil 5 mg Tablet 5 mg PO DAILY RF: 0 lamotrigine 25 mg Tablet 25 mg PO DAILY RF: 0 Levemir U-100 Insulin 100 unit/mL Solution 8 unit SUBCUT DIRECTED RF: 0 Discontinued aripiprazole 5 mg tablet 5 mg PO ONCE RF: 0 No Action (DME) pen needle, diabetic [ReliOn Pen [place]] 32 gauge x 5/32 needle See Rx Instructions .ROUTE .MEDSUPPLY Qty: 100 RF: 5 Referrals: Mary Grace Hollingsworth MD [Primary Care Provider] - Transfer Attestations Time Spent in Transfer Care*: less than 30 min Quality Metrics Clinical Quality Measures: During this hospital stay, did patient experience: None Coding Level of Care Code Acute Olive Knocker for g Fwd Diagnoses Psychosis F29 Chest pain R07.9 Right foot ulcer L97.519 Dementia F03.91 Dementia behavioral disturbance: with behavioral disturbance Dementia type: unspecified type
--- NOTE | 2019-07-05 20:33 | PC.NURSE ---
Pt awake and agitated. Refuses nursing to staff to touch or care for patient. Verbalizes what ever your going to do, you are going to turn around and leave me alone you better not touch me . 1:1 sitter remains at bedside for patients safety monitoring. Using calm voiced and rephrasing pt statements verbalizes I've had enough of this place . Refuses medications, refuses nurse to take vital signs, refuses nurse to do an assessment.
--- NOTE | 2019-07-05 21:20 | PC.NURSE ---
This RN attempted to give patient evening meds of Zyprexa and Trazadone. Patient continued to say out and would not allow this RN to explain what medications are for. Unable to educate patient.
[2019-07-06] VITALS (9 sets, daily range): BP systolic 122–161; BP diastolic 71–86; PULSE 72–73; RESP 20; TEMP 36.6–37.2; O2SAT 93–95
--- NOTE | 2019-07-06 00:10 | PC.NURSE ---
Assessment limited due to patients refusal for nurse for nurse to touch patient. Assessment pieces charted are from visual assessment.
--- NOTE | 2019-07-06 02:49 | PC.NURSE ---
Continues to refuse nurse to assess her. Did allow another staff nurse to take blood pressure and verbalizes only one time . Pt makes minimal eye contact with nurse and stares at the TV when speaking. 1:1 sitter remains at bedside.
--- NOTE | 2019-07-06 05:00 | PC.NURSE ---
Patient refuses AM lab draws.
--- NOTE | 2019-07-06 09:32 | PC.NURSE ---
ambulated to bathroom. erik. well. when asked if she ever gets dizzy when she is up stated well doesnt everybody explained that not every one does.
--- NOTE | 2019-07-06 11:38 | PC.NURSE ---
10:00ambulated to bathroom w/o diff. modeerate amt of hard stool. stated i'm constipated although she had a b.m.stool very large and hard.
[2019-07-06] MEDS: dilTIAZem ER (24HR) 180 mg Capsule PO (12:11)
[2019-07-06] MEDS: apixaban 5 mg Tablet PO (13:35)
[2019-07-06] MEDS: lamoTRIgine 25 mg Tablet PO (13:35)
[2019-07-06] MEDS: atorvastatin 40 mg Tablet PO ×2 (13:36→13:37)
[2019-07-06 13:38] LABS: Influenza A by IFA Negative (Negative); Influenza B by IFA Negative (Negative)
[2019-07-06] MEDS: donepezil 5 MG Tablet PO ×2 (13:38→13:40)
[2019-07-06] MEDS: aspirin 81 mg EC Tablet PO (13:40)
--- NOTE | 2019-07-06 13:41 | PM.PN ---
Subjective Subjective: Interval history: Yesterday evening, patient had episodes of agitation, hostility towards staff, wandered out of her ICU room, went into the neighboring room, she sat on the floor, refused to get up, refused help from senior living staff, she refused to talk to me, eventually she was escorted back into her room, was having episodes of confusion and agitation, eventually received Haldol and calmed down. This morning patient refuses to talk to me, at times would refuse my exam nation, told me to go away. Vitals/I&O/Wt Last Vital Signs Temp 97.9 F 07/06/19 12:29 Pulse 72 07/06/19 05:12 Resp 20 H 07/06/19 05:12 BP 161/83 07/06/19 13:00 Pulse Ox 97 07/05/19 14:50 07/05/19 07/06/19 07/06/19 22:59 06:59 14:59 Intake Total 480 / 680 80 / 760 540 / 540 Output Total 0 / 0 Balance 480 / 680 80 / 760 540 / 540 Weight last 48 hrs Weight 69.309 kg Physical Exam Resp: COMMON NORMALS: normal respiratory effort and clear to auscultation bilaterally AUSCULTATION: clear to auscultation bilaterally Cardio: COMMON NORMALS: regular rate, regular rhythm, S1 normal heart sound and S2 normal heart sound RATE: regular rate RHYTHM: regular rhythm HEART SOUNDS: S1 normal and S2 normal GI: COMMON NORMALS: normal to inspection, nondistended, normoactive bowel sounds Psych: ATTITUDE: Yes uncooperative and Yes agitated Data : 07/05/19 04:32 07/05/19 04:32 A&P Assessment and plan (1) Psychosis: -Continues to have episodes of agitation, PRN Haldol, redirection -Recent history of suicide attempt -No current suicidal ideation, homicidal ideation -Patient is in the ICU, on a 96-hour hold -Psychiatry is agreeable to transfer to geriatric psych unit -Continue home medications Status: Acute Code(s): F29 - Unspecified psychosis not due to a substance or known physiological condition (2) Chest pain: -No current chest pain -No significant telemetry events -Echocardiogram no wall motion abnormalities, ejection fraction 65%, mild concentric left atrial hypertrophy -Refuses to wear telemetry monitoring Status: Acute Code(s): R07.9 - Chest pain, unspecified (3) Right foot ulcer: -Status post debridement by podiatry -Follow-up podiatry's recommendations Status: Acute Code(s): L97.519 - Non-pressure chronic ulcer of other part of right foot with unspecified severity (4) Dementia: Has episodes of confusion, agitation Status: Acute Qualifiers: Dementia behavioral disturbance: with behavioral disturbance Dementia type: unspecified type Qualified Code(s): F03.91 - Unspecified dementia with behavioral disturbance Code(s): F03.90 - Unspecified dementia without behavioral disturbance Additional A&P Information Full code DVT prophylaxis not needed she is on Eliquis GI prophylaxis: Protonix Attestations Medical Necessity Statement*: Patient requires transfer to geriatric psych unit for dementia and psychosis Coding Level of Care Code Acute 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
[2019-07-06] MEDS: pantoprazole DR 40 mg Tablet PO (13:47)
--- NOTE | 2019-07-06 17:36 | PC.NURSE ---
transferred to [facility] to a geriatric psych. unit. belongings sent with including a special shoe for her foot. no other shoes found.
== END 2019-07-06 17:30 | DRG 313 ==
LOC: ER 07-04 00:33 → MEDSURG 07-04 02:19 → ICU 07-04 11:44
PROVIDERS: Family Medicine; Physician Assistant; Admitting Provider Internal Medicine; Emergency Provider Emergency Medicine; PCP Family Medicine; Visit Provider Family Medicine
DX: R07.9 Chest pain, unspecified (principal); F03.91 Unspecified dementia, unspecified severity, with behavioral disturbance; F23 Brief psychotic disorder; R79.89 Other specified abnormal findings of blood chemistry; I48.91 Unspecified atrial fibrillation; Z79.01 Long term (current) use of anticoagulants; Z91.5 Personal history of self-harm; Z79.4 Long term (current) use of insulin; I10 Essential (primary) hypertension; E11.51 Type 2 diabetes mellitus with diabetic peripheral angiopathy without gangrene; E78.5 Hyperlipidemia, unspecified; Z82.49 Family history of ischemic heart disease and other diseases of the circulatory system; F32.9 Major depressive disorder, single episode, unspecified; E11.621 Type 2 diabetes mellitus with foot ulcer; L97.512 Non-pressure chronic ulcer of other part of right foot with fat layer exposed; E11.42 Type 2 diabetes mellitus with diabetic polyneuropathy
CPT/HCPCS: 12345; 36415; 36416; 71045; 73620; 80053; 80307; 81003; 82550; 82962; 83735; 84100; 84484; 85025; 87804; 93005; 93306; 96372; 97760; 99284; G0378; J1630; J1815; J2060; J3486; J7030; L3260